=== PATIENT | female | born 1960 | race Two or more races ===

== ENCOUNTER 2024-03-11 13:59 | Outpatient (OUT) | payer SELFPAY | END 2024-03-11 14:00 | disposition home or self-care (01) | LOC: PST 13:59 | PROVIDERS: Visit Provider Surgery | DX: Z01.818 Encounter for other preprocedural examination (principal); R19.5 Other fecal abnormalities ==

== ENCOUNTER 2024-03-19 07:34 | Day surgery (SDC) | payer MEDICAID, SELFPAY ==
--- NOTE | 2024-03-19 | OP_ITS ---
OPERATION DATE: 03/19/2024 PREOPERATIVE DIAGNOSIS: Positive Cologuard. POSTOPERATIVE DIAGNOSIS: 2 cm rectal polyp. PROCEDURE: Colonoscopy to cecum with hot snare polypectomy x1 for rectal polyp. SURGEON: Chet Buchanan M.D. ANESTHESIA: Monitored anesthesia care. ESTIMATED BLOOD LOSS: Less than 1 mL. INDICATIONS AND CONSENT: Patient is a 63-year-old female presents for positive Cologuard. Indications, risks, benefits, alternatives of proceeding with colonoscopy were explained extensively to the patient, including the risks of bleeding, colon perforation or anesthetic complications. All of her questions were answered. Informed consent was obtained. PROCEDURE: Patient brought to the operating room, placed in the left lateral decubitus position. Monitored anesthesia care was provided. Rectal exam was performed which revealed no masses or blood. The scope was inserted into the anal canal. Under direct visualization was advanced. With the aid of abdominal compression, it was advanced to the cecum where cecal markings were clearly identified. There was noted to be a good prep. Upon withdrawal of the scope, mucosal surfaces were carefully examined. There were no mass lesions or inflammatory changes. No significant diverticulosis. Within the rectum, there was noted to be a 2 cm, irregular, villous type polyp that was removed with hot snare with good hemostasis. It was completely removed and sent off to Pathology. The scope was retroflexed in the anal canal. There was no significant hemorrhoidal disease. The scope was then withdrawn. Patient tolerated procedure well, was sent to recovery room in good condition. Follow up colonoscopy will likely be in three years, but will depend on the pathology. CC: Patient?s family physician AARON
--- OUTSIDE RECORDS SUMMARY | 2024-03-19 07:41 | XMS_ITS | CCD ---
Author Organization [facility] CliniSyky Care Team Providers Care Family Resource Management Professor Name Role Phone [facility], [facility] Primary Care Unava RADHA Barrientos Consulting Unavailable CHUCK EDEN Attending Unavailable CHUCK EEDN Admitting Unavailable CHUCK EDEN Consulting Unavailable Herbert Tatum Consulting Unavailable Vitaly Edwards Primary Care Provider VITALY LOTT Primary Care Physician Chet ESPINO Attending Unavailable VITALY LOTT Referring Unavailable Chet ESPINO Attending Unavailable VITALY LOTT Referring Unavailable Allergies Allergy Classification Reported Allergen(s) Allergy Type Date of Onset Reaction(s) Facility (1 source) No Known Medication Allergies; Translations: [No Known Medication Allergies] Propensity to adverse reactions (disorder) [facility] Repository Medications Current Medications Medication Drug Class(es) Dates Sig (Normalized) Sig (Original) lisinopril 40 mg oral tablet (3 sources) Angiotensin Converting Enzyme Inhibitor Start: 11-28-2023 take 1 tablet by mouth once daily lisinopril 40 mg Tab 40 mg = 1 tab(s), Oral, Daily, Refills(s) 0 Start Date: 11/28/23 Status: Ordered Start: 10-12-2022 take 1 tablet by masha th in the morning lisinopriL (PRINIVIL,ZESTRIL) 40 mg tablet Take 1 tablet (40 mg total) by mouth in the morning. 0 10/12/2022 Active melatonin 10 mg sublingual tablet (1 source) take 1 tablet under the tongue once daily at bedtime melatonin 10 mg tablet, sublingual Place under the tongue daily. Takes (2) 10 mg at bedtime 0 Active metFORMIN hydrochloride 500 mg oral tablet (2 sources) Biguanide Start: take 2 tablets by mouth once daily metformin 500 mg ER Tab 1,000 mg = 2 tab(s), Oral, Daily, Refills(s) 0 Start Date: 11/28/23 Status: Ordered Miralax (2 sources) Osmotic Laxative Start: 4 take 17 g by mouth once daily MiraLax 17 gm, Oral, Daily, Refill(s) 0 Start Date: 11/28/23 Status: Ordered sertraline 50 mg oral tablet (3 sources) Serotonin Reuptake Inhibitor Start: 4 take 1 tablet by mouth once daily Zoloft 50 mg Tab 50 mg = 1 tab(s), Oral, Daily, Refills(s) 0 Start Date: 11/28/23 Status: Ordered Start: 11-02-2022 End: 09-25-2023 take 1 tablet by mouth in the morning sertraline (ZOLOFT) 50 mg tablet Take 1 tablet (50 mg total) by mouth in the morning. 0 11/02/2022 09/25/2023 Discontinued Problems Active Problems Problem Classification Problem Date Documented Da te Episodic/Chronic Anxiety disorders (2 sources) Anxiety 11-28-2023 Chronic Diabetes mellitus without complication (2 sources) Type 2 diabetes mellitus 11-28-2023 Chronic Essential hypertension (3 sources) Essential (primary) hypertension; Translations: [Essential hypertension] Onset: 09-13-2020 11-28-2023 Chronic Mood disorders (2 sources) Depressive disorder 11-28-2023 Chronic Osteoarthritis (1 source) Unspecified osteoarthritis, unspecified site; Translations: [UNSPECIFIED OSTEOARTHRITIS UNS SITE] Onset: 09-13-2020 Chronic Other aftercare (1 source) Other penitentiary (current) drug therapy; Translations: [OTH PENITENTIARY CURRENT DRUG THERAPY] Onset: 09-13-2020 Episodic Other gastrointestinal disorders (2 sources) Constipation 11-28-2023 Episodic Other gastrointestinal disorders (1 source) Abnormal feces; Translations: [Other fecal abnormalities] Onset: 01-22-2024 Episodic Other lower respiratory disease (1 source) Hypoxemia; Translations: [HYPOXEMIA] Onset: 09-13-2020 Episodic Other nutritional; endocrine; and metabolic disorders (1 source) Obese class II; Translations: [Obesity, unspecified] 09-25-2023 Chronic Other nutritional; endocrine; and metabolic disorders (2 sources) Metabolic syndrome X 11-28-2023 Chronic Other nutritional; endocrine; and metabolic disorders (2 sources) Morbid obesity 11-28-2023 Chronic Other nutritional; endocrine; and metabolic disorders (1 source) Body mass index 30+ - obesity 01-22-2024 Chronic Other screening for suspected conditions (not mental disorders or infectious disease) (2 sources) Stool DNA-based colorectal cancer screening positive 11-28-2023 Episodic Pneumonia (except that caused by tuberculosis or sexually transmitted disease) (1 source) Other viral pneumonia; Translations: [OTHER VIRAL PNEUMONIA] Onset: 09-13-2020 Episodic Residual codes; unclassified (3 sources) Obstructive sleep apnea syndrome; Translations: [Obstructive sleep apnea (adult) (pediatric)] 09-25-2023 Chronic Residual codes; unclassified (3 sources) Insomnia; Translations: [Insomnia, unspecified] 09-25-2023 Episodic Residual codes; unclassified (1 source) Language spoken - finding; Translations: [Other specified health status] 09-25-2023 Episodic Respiratory failure; insufficiency; arrest (adult) (1 source) Acute respiratory failure with hypoxia; Translations: [ACUTE RESPIRATORY FAIL W/HYPOXIA] Onset: 09-13-2020 Episodic Unclassified (3 sources) COVID-19; Translations: [COVID-19] Onset: 08-29-2020 Past or Other Problems Problem Classification Problem Date Documented Da te Episodic/Chronic Heart valve disorders (2 sources) Murmur Resolved: 11-28-2023 11-28-2023 Episodic Results Test Name Value Interpretation Reference Range Facility Insurance Correspondenceon 0 03-05-2024 Insurance Correspondence [id number] 1#1.00TIFF [facility] Consent for Procedure/Surger yon 01-24-2024 Consent for Procedure/Surgery [id number] #1.00TIFF [facility] Facesheeton 01-23-2024 Facesheet [id number] 2#1.00TIFF [facility] Ambulatory Visit Summaryon 0 01-22-2024 Ambulatory Visit Summary YENNY POWERS :1960 Visit Date:01/22/2024 Ambulatory Visit Instructions Your Diagnosis Positive colorectal cancer screening using Cologuard test Your Care Team Attending Physician - Chet ESPINO MD Primary Care Physician - VITALY LOTT CNP Referring Physician - VITALY LOTT CNP This Is Your Medications List Contact prescribing physician if questions or concerns lisinopril (lisinopril 40 mg Tab) metformin (metformin 500 mg ER Tab) polyethylene glycol 3350 (MiraLax) sertraline (Zoloft 50 mg Tab) Procedures Performed Abdominal hysterectomy, Arthroscopy of knee. Discharge Vitals Heart Rate (Peripheral) 76 Respiratory Rate 16 Blood Pressure 126/80 Height 152.4 cm Height 60 in Weight 89.0 kg Weight 195.8 lb BMI 38.32 Medications What How Much When Instructions Unchanged lisinopril (lisinopril 40 mg Tab) 1 Tablets By Mouth Every day Contact prescribing physician if questions or concerns Unchanged metformin (metformin 500 mg ER Tab) 2 Tablets By Mouth Every day Contact prescribing physician if questions or concerns Unchanged polyethylene glycol 3350 (MiraLax) 17 Gram By Mouth Every day Contact prescribing physician if questions or concerns Unchanged sertraline (Zoloft 50 mg Tab) 1 Tablets By Mouth Every day Contact prescribing physician if questions or concerns Allergies No Known Allergies No Known Medication Allergies Problems Ongoing - Any problem that you are currently receiving treatment for. Anxiety BMI 38.0-38.9,adult Constipation Depression Essential hypertension Insomnia Metabolic syndrome X Morbid obesity Obstructive sleep apnea syndrome Positive colorectal cancer screening using Cologuard test Type 2 diabetes mellitus Historical - Any problem that you are no longer receiving treatment for. Murmur Patient Survey You may receive a survey via text or e-mail asking about your office visit. Please share your experience with us by completing your survey. We appreciate your feedback and thank you for choosing us for your care. Normal [facility] Lab Reportson 11-21-2023 Lab Reports [id number] #1.00TIFF Normal [facility] Physician Referralon 024 Physician Referral [id number] #1.00TIFF [facility] CBC W MANUAL DIFFon 09-02-20 20 ATYPICAL LYMPH # Normal [facility] Comment on above: Performed By: #### B #### [facility] [address] [place] [address] Panchito Haydee ATYPICAL LYMPH % Normal [facility] Comment on above: Performed By: #### B MP #### [facility] [address] [place] [address] Panchito Haydee BAND # 0.1 103/ul Normal 0.0-0.3 [facility] Comment on above: Performed By: #### B MP #### [facility] [address] [place] [address] Panchito Haydee BAND % 1 % Normal 0-5 [facility] Comment on above: Performed By: #### B MP #### [facility] [address] [place] [address] Panchito Haydee BASOM # 0.00 103/ul Normal 0.00-0.10 [facility] Comment on above: Performed By: #### B MP #### [facility] [address] [place] [address] Panchito Haydee BASOM % 0.0 % Critically low 0.2-2.0 [facility] Comment on above: Performed By: #### B MP #### [facility] [address] [place] [address] Panchito Haydee BLAST # Normal [facility] Comment on above: Performed By: #### B MP #### [facility] [address] [place] [address] Panchito Haydee BLAST % Normal The [facility] Comment on above: Performed By: #### B MP #### [facility] [address] [place] [address] Panchito Haydee CORRECTED WBC Normal 4.0-11.0 [facility] Comment on above: Performed By: #### B MP #### [facility] [address] [place] [address] Panchito Haydee Eosinophils (Bld) [#/Vol] 0.00 103/ul Normal 0.00-0.70 [facility] Comment on above: Performed By: #### B MP #### [facility] [address] [place] [address] Panchito Haydee Eosinophils/100 WBC (Bld) 0.0 % Critically low 0.9-7.0 [facility] Comment on above: Performed By: #### B MP #### [facility] [address] [place] [address] Panchito Hubbard Erythrocyte distribution width (RBC) [Ratio] 11.6 % Normal 11.0-15.0 [facility] Comment on above: Performed By: #### B MP #### [facility] [address] [place] [address] Panchito Hubbard Hematocrit (Bld) [Volume fraction] 36.4 % Normal 36.0-48.0 The [facility] Comment on above: Performed By: #### B MP #### [facility] [address] [place] [address] Panchito Haydee Hemoglobin (Bld) [Mass/Vol] 12.4 g/dl Normal 12.0-16.0 [facility] Comment on above: Performed By: #### B MP #### [facility] [address] [place] [address] Panchito Hubbard LYMPHM # 1.28 103/ul Normal 1.20-3.80 [facility] Comment on above: Performed By: #### B MP #### [facility] [address] [place] [address] Panchito Hubbard LYMPHM% 20.0 % Critically low 20.5-60.0 The [facility] Comment on above: Performed By: #### B MP #### [facility] [address] [place] [address] Panchito Hubbard MCH (RBC) [Entitic mass] 31.0 pg Normal 26.7-34.0 The [facility] Comment on above: Performed By: #### B MP #### [facility] [address] [place], [place] [id number] Panchito Hubbard MCHC (RBC) [Mass/Vol] 34.1 g/dl Normal 29.9-35.2 The [facility] Comment on above: Performed By: #### B MP #### [facility] [address] [place] [address] Panchito Haydee MCV (RBC) [Entitic vol] 91.0 fL Normal 81.0-99.0 The [facility] Comment on above: Performed By: #### B MP #### [facility] [address] [place] [address] Panchitoelizabeth Hubbard METAMYELOCYTE # 0.3 103/ul Normal [facility] Comment on above: Performed By: #### B MP #### [facility] [address] [place] [address] Panchitoelizabeth Hubbard METAMYELOCYTE % 4 % Normal [facility] Comment on above: Performed By: #### B MP #### [facility] [address] [place] [address] Panchitoelizabeth Hubbard MONOM# 0.83 103/ul Critically high 0.30-0.80 [facility] Comment on above: Performed By: #### B MP #### [facility] [address] [place] [address] Panchitoelizabeth Hubbard MONOM% 13.0 % Critically high 1.7-12.0 The [facility] Comment on above: Performed By: #### B MP #### [facility] [address] [place] [address] Panchitoelizabeth Hubbard MYELOCYTE # 0.4 103/ul Normal The [facility] Comment on above: Performed By: #### B MP #### [facility] [address] [place] [address] Panchitoelizabeth Hubbard MYELOCYTE % 7 % Normal The [facility] Comment on above: Performed By: #### B MP #### [facility] [address] [place] [address] Panchito Haydee NRBC Normal [facility] Comment on above: Performed By: #### B MP #### [facility] [address] [place] [address] Panchito Hubbard Platelet mean volume (Bld) [Entitic vol] 9.3 fL Critically low 9.5-13.5 [facility] Comment on above: Performed By: #### B MP #### [facility] [address] [place] [address] Panchito Haydee Platelets (Bld) [#/Vol] 365 103/ul Normal 150-450 [facility] Comment on above: Performed By: #### B MP #### [facility] [address] [id number] Panchito Haydee RBC (Bld) [#/Vol] 4.00 106/ul Critically low 4.20-5.40 [facility] Comment on above: Performed By: #### B MP #### [facility] [address] [address] Panchito Haydee SEG # 3.52 103/ul Normal 1.40-6.50 [facility] Comment on above: Performed By: #### B MP #### [facility] [address] [place], [place] [id number] Panchito Haydee Segmented neutrophils/100 WBC (Bld) 55.0 % Normal 43.0-75.0 [facility] Comment on above: Performed By: #### B MP #### [facility] [address] [place], [place] [id number] Panchito Haydee WBC (Bld) [#/Vol] 6.4 103/ul Normal 4.0-11.0 [facility] Comment on above: Performed By: #### B MP #### [facility] [address] [place], [place] [id number] Panchito Haydee PROF CHEM 8 (BAS METB)on Anion gap [Moles/Vol] 13.6 mmol/L Normal [facility] Comment on above: Performed By: #### B MP #### [facility] [address] [place], [place] [id number] Panchito Haydee Calcium [Mass/Vol] 8.6 mg/dL Normal 8.4-10.2 [facility] Comment on above: Performed By: #### B MP #### [facility] [address] [place], [place] [id number] Panchito Haydee Chloride [Moles/Vol] 104 mmol/L Normal 98-107 [facility] Comment on above: Performed By: #### B MP #### [facility] [address] [id number] Panchito Haydee CO2 [Moles/Vol] 24.4 mmol/L Normal 22.0-30.[address] [facility] Comment on above: Performed By: #### B MP #### [facility] [address] [place], [place] [id number] Panchito Haydee Creatinine [Mass/Vol] 0.77 mg/dL Normal 0.52-1.04 [facility] Comment on above: Performed By: #### B MP #### [facility] [address] [id number] Panchito Haydee EGFR-AF PARAGUAYAN >60 Normal >=60 [facility] Comment on above: Performed By: #### B MP #### [facility] [address] [id number] Panchito Haydee EGFR-NON AF PARAGUAYAN >60 Normal >=60 [facility] Comment on above: Performed By: #### B MP #### [facility] [address] [place], [place] [id number] Panchito Haydee Glucose [Mass/Vol] 154 mg/dL Critically high 74-106 [facility] Comment on above: Performed By: #### B MP #### [facility] [address] [place], [place] [address] Panchito Haydee Potassium [Moles/Vol] 3.5 mmol/L Normal 3.4-5.0 [facility] Comment on above: Performed By: #### B MP #### [facility] [address] [place], [place] [id number] Panchito Haydee Sodium [Moles/Vol] 139 mmol/L Normal 137-145 [facility] Comment on above: Performed By: #### B MP #### [facility] [address] [place], [place] [address] Panchito Haydee Urea nitrogen [Mass/Vol] 22.0 mg/dL Critically high 7.0-17.0 [facility] Comment on above: Performed By: #### B MP #### [facility] [address] [phone] Panchito Haydee Urea nitrogen/Creatinine [Mass ratio] 28.6 mg/mg Normal [facility] Comment on above: Performed By: #### B MP #### [facility] [address] [phone] Panchito Haydee CBC W MANUAL DIFFon 09-01-20 20 ATYPICAL LYMPH # 0.38 103/ul Normal [facility] Comment on above: Performed By: #### B MP #### [facility] [address] [place] [address] Panchito Haydee ATYPICAL LYMPH % 6 % Normal [facility] Comment on above: Performed By: #### B MP #### [facility] [address] [place] [address] Panchito Haydee BAND # 0.0 103/ul Normal 0.0-0.3 The [facility] Comment on above: Performed By: #### B MP #### [facility] [address] [place] [address] Panchito Haydee BAND % 0 % Normal 0-5 The [facility] Comment on above: Performed By: #### B MP #### [facility] [address] [place] [address] Panchito Haydee BASOM # 0.00 103/ul Normal 0.00-0.10 [facility] Comment on above: Performed By: #### B MP #### [facility] [address] [place] [address] Panchito Haydee BASOM % 0.0 % Critically low 0.2-2.0 The [facility] Comment on above: Performed By: #### B MP #### [facility] [address] [place] [address] Panchito Haydee BLAST # Normal [facility] Comment on above: Performed By: #### B MP #### [facility] [address] [place] [address] Panchito Haydee BLAST % Normal [facility] Comment on above: Performed By: #### B MP #### [facility] [address] [place] [address] Panchito Haydee CORRECTED WBC Normal 4.0-11.0 [facility] Comment on above: Performed By: #### B MP #### [facility] [address] [phone] Panchito Haydee Eosinophils (Bld) [#/Vol] 0.00 103/ul Normal 0.00-0.70 [facility] Comment on above: Performed By: #### B MP #### [facility] [address] [place], [place] [id number] Panchito Haydee Eosinophils/100 WBC (Bld) 0.0 % Critically low 0.9-7.0 The [facility] Comment on above: Performed By: #### B MP #### [facility] [address] [place], [place] [id number] Panchito Haydee Erythrocyte distribution width (RBC) [Ratio] 11.9 % Normal 11.0-15.0 [facility] Comment on above: Performed By: #### B MP #### [facility] [address] [place] [address] Panchito Haydee Hematocrit (Bld) [Volume fraction] 37.1 % Normal 36.0-48.0 [facility] Comment on above: Performed By: #### B MP #### [facility] [address] [place], [place] [id number] Panchito Haydee Hemoglobin (Bld) [Mass/Vol] 12.3 g/dl Normal 12.0-16.0 [facility] Comment on above: Performed By: #### B MP #### [facility] [address] [place], [place] [id number] Panchito Haydee LYMPHM # 1.95 103/ul Normal 1.20-3.80 [facility] Comment on above: Performed By: #### B MP #### [facility] [address] [place], [place] [id number] Panchito Haydee LYMPHM% 31.0 % Normal 20.5-60.0 The [facility] Comment on above: Performed By: #### B MP #### [facility] [address] [place], [place] [id number] Panchito Haydee MCH (RBC) [Entitic mass] 30.8 pg Normal 26.7-34.0 The [facility] Comment on above: Performed By: #### B MP #### [facility] [address] [place] [address] Panchitoelizabeth Arroyoen MCHC (RBC) [Mass/Vol] 33.2 g/dl Normal 29.9-35.2 The [facility] Comment on above: Performed By: #### B MP #### [facility] Laboratory [address] [place] [address] Panchito Haydee MCV (RBC) [Entitic vol] 93.0 fL Normal 81.0-99.0 [facility] Comment on above: Performed By: #### B MP #### [facility] Laboratory [address] [place] [address] Panchito Haydee METAMYELOCYTE # Normal The [facility] Comment on above: Performed By: #### B MP #### [facility] Laboratory [address] [place] [address] Panchito Haydee METAMYELOCYTE % Normal The [facility] Comment on above: Performed By: #### B MP #### [facility] Laboratory [address] [place] [address] Panchito Haydee MONOM# 0.82 103/ul Critically high 0.30-0.80 The [facility] Comment on above: Performed By: #### B MP #### [facility] Laboratory [address] [place] [address] Panchito Haydee MONOM% 13.0 % Critically high 1.7-12.0 The [facility] Comment on above: Performed By: #### B MP #### [facility] Laboratory [address] [place] [address] Panchito Haydee MYELOCYTE # Normal The [facility] Comment on above: Performed By: #### B MP #### [facility] Laboratory [address] [place] [address] Panchito Haydee MYELOCYTE % Normal The [facility] Comment on above: Performed By: #### B MP #### [facility] Laboratory [address] [place] [address] Panchito Haydee NRBC Normal The [facility] Comment on above: Performed By: #### B MP #### [facility] Laboratory [address] [place] [address] Panchito Haydee Platelet mean volume (Bld) [Entitic vol] 9.7 fL Normal 9.5-13.5 [facility] Comment on above: Performed By: #### B MP #### [facility] Laboratory [address] [id number] Panchito Hubbard Platelets (Bld) [#/Vol] 361 103/ul Normal 150-450 The [facility] Comment on above: Performed By: #### B MP #### [facility] Laboratory [address] [id number] Panchitoelizabeth Arroyoen RBC (Bld) [#/Vol] 3.99 106/ul Critically low 4.20-5.40 [facility] Comment on above: Performed By: #### B MP #### [facility] Laboratory [address] [place] [address] Panchito Hubbard SEG # 3.15 103/ul Normal 1.40-6.50 [facility] Comment on above: Performed By: #### B MP #### [facility] Laboratory [address] [place] [address] Panchito Haydee Segmented neutrophils/100 WBC (Bld) 50.0 % Normal 43.0-75.0 [facility] Comment on above: Performed By: #### B MP #### [facility] Laboratory [address] [place], [place] [id number] Panchitoelizabeth Hubbard WBC (Bld) [#/Vol] 6.3 103/ul Normal 4.0-11.0 [facility] Comment on above: Performed By: #### B MP #### [facility] Laboratory [address] [place], [place] [id number] Panchito Hubbard PROF CHEM 8 (BAS METB)on Anion gap [Moles/Vol] 11.3 mmol/L Normal [facility] Comment on above: Performed By: #### B MP #### [facility] Laboratory [address] [place], [place] [id number] Panchito Haydee Calcium [Mass/Vol] 8.9 mg/dL Normal 8.4-10.2 [facility] Comment on above: Performed By: #### B MP #### [facility] Laboratory [address] [id number] Panchito Haydee Chloride [Moles/Vol] 106 mmol/L Normal 98-107 The [facility] Comment on above: Performed By: #### B MP #### [facility] Laboratory [address] [place] [address] Panchito Haydee CO2 [Moles/Vol] 28.3 mmol/L Normal 22.0-30.0 The [facility] Comment on above: Performed By: #### B MP #### [facility] Laboratory [address] [place] [address] Panchito Haydee Creatinine [Mass/Vol] 0.86 mg/dL Normal 0.52-1.04 The [facility] Comment on above: Performed By: #### B MP #### [facility] Laboratory [address] [place] [address] Panchito Haydee EGFR-AF PARAGUAYAN >60 Normal >=60 The [facility] Comment on above: Performed By: #### B MP #### [facility] Laboratory [address] [place] [address] Panchito Haydee EGFR-NON AF PARAGUAYAN >60 Normal >=60 The [facility] Comment on above: Performed By: #### B MP #### [facility] Laboratory [address] [place] [address] Panchito Haydee Glucose [Mass/Vol] 106 mg/dL Normal 74-106 The [facility] Comment on above: Performed By: #### B MP #### [facility] Laboratory [address] [place] [address] Panchito Haydee Potassium [Moles/Vol] 3.6 mmol/L Normal 3.4-5.0 The [facility] Comment on above: Performed By: #### B MP #### [facility] Laboratory [address] [place], [place] [id number] Panchito Hayede Sodium [Moles/Vol] 142 mmol/L Normal 137-145 The [facility] Comment on above: Performed By: #### B MP #### [facility] Laboratory [address] [address] Panchito Haydee Urea nitrogen [Mass/Vol] 23.0 mg/dL Critically high 7.0-17.0 [facility] Comment on above: Performed By: #### B MP #### [facility] Laboratory [address] [place], [place] [id number] Panchito Haydee Urea nitrogen/Creatinine [Mass ratio] 26.7 mg/mg Normal The [facility] Comment on above: Performed By: #### B MP #### [facility] Laboratory [address] [place], [place] [id number] Panchito Haydee CBC W MANUAL DIFFon 08-31-20 20 ATYPICAL LYMPH # 0.16 103/ul Normal [facility] Comment on above: Performed By: #### C HOMERO #### [facility] Laboratory [address] [place], [place] [id number] Panchito Haydee ATYPICAL LYMPH % 2 % Normal The [facility] Comment on above: Performed By: #### C HOMERO #### [facility] Laboratory [address] [place] [address] Panchito Haydee BAND # 0.2 103/ul Normal 0.0-0.3 The [facility] Comment on above: Performed By: #### C HOMERO #### [facility] Laboratory [address] [place], [place] [id number] Panchito Haydee BAND % 3 % Normal 0-5 The [facility] Comment on above: Performed By: #### C HOMERO #### [facility] Laboratory [address] [place] [address] Panchito Haydee BASOM # 0.00 103/ul Normal 0.00-0.10 The [facility] Comment on above: Performed By: #### C HOMERO #### [facility] Laboratory [address] [place] [address] Panchito Haydee BASOM % 0.0 % Critically low 0.2-2.0 The [facility] Comment on above: Performed By: #### C HOMERO #### [facility] Laboratory [address] [place] [address] Panchito Haydee BLAST # Normal The [facility] Comment on above: Performed By: #### C HOMERO #### [facility] Laboratory [address] [place] [address] Panchito Haydee BLAST % Normal The [facility] Comment on above: Performed By: #### C HOMERO #### [facility] Laboratory [address] [place], [place] [address] Panchito Haydee CORRECTED WBC Normal 4.0-11.0 [facility] Comment on above: Performed By: #### C HOMERO #### [facility] Laboratory [address] [place], [place] [address] Panchito Haydee Eosinophils (Bld) [#/Vol] 0.00 103/ul Normal 0.00-0.70 [facility] Comment on above: Performed By: #### C HOMERO #### [facility] Laboratory [address] [place], [place] [address] Panchito Haydee Eosinophils/100 WBC (Bld) 0.0 % Critically low 0.9-7.0 [facility] Comment on above: Performed By: #### C HOMERO #### [facility] Laboratory [address] [place], [place] [id number] Panchito Haydee Erythrocyte distribution width (RBC) [Ratio] 11.9 % Normal 11.0-15.0 [facility] Comment on above: Performed By: #### C HOMERO #### [facility] Laboratory [address] [place], [place] [id number] Panchito Haydee Hematocrit (Bld) [Volume fraction] 40.7 % Normal 36.0-48.0 [facility] Comment on above: Performed By: #### C HOMERO #### [facility] Laboratory [address] [place] [address] Panchito Haydee Hemoglobin (Bld) [Mass/Vol] 13.6 g/dl Normal 12.0-16.0 [facility] Comment on above: Performed By: #### C HOMERO #### [facility] Laboratory [address] [place] [address] Panchito Haydee LYMPHM # 2.13 103/ul Normal 1.20-3.80 The [facility] Comment on above: Performed By: #### C HOMERO #### [facility] Laboratory [address] [phone] Panchito Haydee LYMPHM% 27.0 % Normal 20.5-60.0 [facility] Comment on above: Performed By: #### C HOMERO #### [facility] Laboratory [address] [address] Panchitoelizabeth Hubbard MCH (RBC) [Entitic mass] 30.7 pg Normal 26.7-34.0 [facility] Comment on above: Performed By: #### C HOMERO #### [facility] Laboratory [address] [place] [address] Panchitoelizabeth Arroyoen MCHC (RBC) [Mass/Vol] 33.4 g/dl Normal 29.9-35.2 The [facility] Comment on above: Performed By: #### C HOMERO #### [facility] Laboratory [address] [place] [address] Panchitoelizabeth Arroyoen MCV (RBC) [Entitic vol] 91.9 fL Normal 81.0-99.0 The [facility] Comment on above: Performed By: #### Forrest VALENTIN #### [facility] Laboratory [address] [place] [address] Panchito Haydee METAMYELOCYTE # Normal The [facility] Comment on above: Performed By: #### Forrest VALENTIN #### [facility] Laboratory [address] [place] [address] Panchito Haydee METAMYELOCYTE % Normal The [facility] Comment on above: Performed By: #### C HOMERO #### [facility] Laboratory [address] [place] [address] Panchito Haydee MONOM# 0.63 103/ul Normal 0.30-0.80 The [facility] Comment on above: Performed By: #### Forrest VALENTIN #### [facility] Laboratory [address] [place] [address] Panchito Haydee MONOM% 8.0 % Normal 1.7-12.0 The [facility] Comment on above: Performed By: #### C HOMERO #### [facility] Laboratory [address] [place] [address] Panchito Haydee MYELOCYTE # Normal The [facility] Comment on above: Performed By: #### Forrest VALENTIN #### [facility] Laboratory [address] [place], [place] [id number] Panchito Haydee MYELOCYTE % Normal The [facility] Comment on above: Performed By: #### Forrest VALENTIN #### [facility] Laboratory [address] [place], [place] [address] Panchitoelizabeth Hubbard NRBC Normal [facility] Comment on above: Performed By: #### Forrest VALENTIN #### [facility] Laboratory [address] [place], [place] [address] Panchito Haydee Platelet mean volume (Bld) [Entitic vol] 9.5 fL Normal 9.5-13.5 [facility] Comment on above: Performed By: #### Forrest VALENTIN #### [facility] Laboratory [address] [place], [place] [address] Panchito Haydee Platelets (Bld) [#/Vol] 379 103/ul Normal 150-450 [facility] Comment on above: Performed By: #### Forrest VALENTIN #### [facility] Laboratory [address] [place], [place] [id number] Panchito Haydee RBC (Bld) [#/Vol] 4.43 106/ul Normal 4.20-5.40 [facility] Comment on above: Performed By: #### Forrest VALENTIN #### [facility] Laboratory [address] [place], [place] [address] Panchitoelizabeth Hubbard SEG # 4.74 103/ul Normal 1.40-6.50 [facility] Comment on above: Performed By: #### Forrest VALENTIN #### [facility] Laboratory [address] [place] [address] Panchito Hubbard Segmented neutrophils/100 WBC (Bld) 60.0 % Normal 43.0-75.0 [facility] Comment on above: Performed By: #### Forrest VALENTIN #### [facility] Laboratory [address] [place] [address] Panchito Haydee WBC (Bld) [#/Vol] 7.9 103/ul Normal 4.0-11.0 The [facility] Comment on above: Performed By: #### Forrest VALENTIN #### [facility] Laboratory [address] [place] [address] Panchito Hubbard PROF CHEM 8 (BAS METB)on Anion gap [Moles/Vol] 12.8 mmol/L Normal [facility] [place] [facility] Comment on above: Performed By: #### B MP #### [facility] Laboratory [address] [address] Panchito Haydee Calcium [Mass/Vol] 9.7 mg/dL Normal 8.4-10.2 [facility] Comment on above: Performed By: #### B MP #### [facility] Laboratory [address] [address] Panchito Haydee Chloride [Moles/Vol] 105 mmol/L Normal 98-107 [facility] Comment on above: Performed By: #### B MP #### [facility] Laboratory [address] [address] Panchito Haydee CO2 [Moles/Vol] 25.9 mmol/L Normal 22.0-30.[address] [facility] Comment on above: Performed By: #### B MP #### [facility] Laboratory [address] [address] Panchito Haydee Creatinine [Mass/Vol] 0.86 mg/dL Normal 0.52-1.04 [facility] Comment on above: Performed By: #### B MP #### [facility] Laboratory [address] [place] [address] Panchito Haydee EGFR-AF PARAGUAYAN >60 Normal >=[address] [facility] Comment on above: Performed By: #### B MP #### [facility] Laboratory [address] [address] Panchito Haydee EGFR-NON AF PARAGUAYAN >60 Normal >=60 [facility] Comment on above: Performed By: #### B MP #### [facility] Laboratory [address] [address] Panchito Haydee Glucose [Mass/Vol] 152 mg/dL Critically high 74-106 [facility] Comment on above: Performed By: #### B MP #### [facility] Laboratory [address] [place] [address] Panchito Haydee Potassium [Moles/Vol] 3.7 mmol/L Normal 3.4-5.0 [facility] Comment on above: Performed By: #### B MP #### [facility] Laboratory [address] [phone] Panchito Haydee Sodium [Moles/Vol] 140 mmol/L Normal 137-145 [facility] Comment on above: Performed By: #### B MP #### [facility] Laboratory [address] [place] [address] Panchito Haydee Urea nitrogen [Mass/Vol] 25.0 mg/dL Critically high 7.0-17.0 [facility] Comment on above: Performed By: #### B MP #### [facility] Laboratory [address] [place] [address] Panchito Haydee Urea nitrogen/Creatinine [Mass ratio] 29.1 mg/mg Normal The [facility] Comment on above: Performed By: #### B MP #### [facility] Laboratory [address] [place] [address] Panchito Haydee CBC W MANUAL DIFFon 08-30-20 20 ATYPICAL LYMPH # 0.05 103/ul Normal The [facility] Comment on above: Performed By: #### C HOMERO #### [facility] Laboratory [address] [place] [address] Panchito Haydee ATYPICAL LYMPH % 1 % Normal The [facility] Comment on above: Performed By: #### C HOMERO #### [facility] Laboratory [address] [place] [address] Panchito Haydee BAND # 0.2 103/ul Normal 0.0-0.3 The [facility] Comment on above: Performed By: #### C HOMERO #### [facility] Laboratory [address] [place] [address] Panchito Haydee BAND % 3 % Normal 0-5 The [facility] Comment on above: Performed By: #### C HOMERO #### [facility] Laboratory [address] [place] [address] Panchito Haydee BASOM # 0.00 103/ul Normal 0.00-0.10 The [facility] Comment on above: Performed By: #### C HOMERO #### [facility] Laboratory [address] [place] [address] Panchito Haydee BASOM % 0.0 % Critically low 0.2-2.0 The [facility] Comment on above: Performed By: #### C HOMERO #### [facility] Laboratory [address] [place], [place] [id number] Panchito Haydee BLAST # Normal [facility] Comment on above: Performed By: #### C HOMERO #### [facility] Laboratory [address] [place], [place] [id number] Panchito Haydee BLAST % Normal The [facility] Comment on above: Performed By: #### C HOMERO #### [facility] Laboratory [address] [place] [address] Panchito Haydee CORRECTED WBC Normal 4.0-11.0 [facility] Comment on above: Performed By: #### C HOMERO #### [facility] Laboratory [address] [place] [address] Panchito Haydee Eosinophils (Bld) [#/Vol] 0.00 103/ul Normal 0.00-0.70 The [facility] Comment on above: Performed By: #### Forrest VALENTIN #### [facility] Laboratory [address] [place] [address] Panchito Haydee Eosinophils/100 WBC (Bld) 0.0 % Critically low 0.9-7.0 [facility] Comment on above: Performed By: #### Forrest VALENTIN #### [facility] Laboratory [address] [place] [address] Panchito Haydee Erythrocyte distribution width (RBC) [Ratio] 12.1 % Normal 11.0-15.0 The [facility] Comment on above: Performed By: #### Forrest VALENTIN #### [facility] Laboratory [address] [place] [address] Panchito Haydee Hematocrit (Bld) [Volume fraction] 35.9 % Critically low 36.0-48.0 The [facility] Comment on above: Performed By: #### Forrest VALENTIN #### [facility] Laboratory [address] [place] [address] Panchito Haydee Hemoglobin (Bld) [Mass/Vol] 12.0 g/dl Normal 12.0-16.0 The [facility] Comment on above: Performed By: #### Forrest VALENTIN #### [facility] Laboratory [address] [address] Panchito Haydee LYMPHM # 0.46 103/ul Critically low 1.20-3.80 [facility] Comment on above: Performed By: #### C HOMERO #### [facility] Laboratory [address] [place], [place] [id number] Panchito Haydee LYMPHM% 9.0 % Critically low 20.5-60.0 The [facility] Comment on above: Performed By: #### C HOMERO #### [facility] Laboratory [address] [place], [place] [id number] Panchitoelizabeth Arroyoen MCH (RBC) [Entitic mass] 30.9 pg Normal 26.7-34.0 The [facility] Comment on above: Performed By: #### C HOMERO #### [facility] Laboratory [address] [place] [address] Panchitoelizabeth Hubbard MCHC (RBC) [Mass/Vol] 33.4 g/dl Normal 29.9-35.2 The [facility] Comment on above: Performed By: #### C HOMERO #### [facility] Laboratory [address] [place], [place] [id number] Panchitoelizabeth Arroyoen MCV (RBC) [Entitic vol] 92.5 fL Normal 81.0-99.0 The [facility] Comment on above: Performed By: #### Forrest VALENTIN #### [facility] Laboratory [address] [address] [place], [place] [id number] Panchito Haydee METAMYELOCYTE # Normal [facility] Comment on above: Performed By: #### Forrest VALENTIN #### [facility] [address] [place], [place] [id number] Panchito Haydee METAMYELOCYTE % Normal [facility] Comment on above: Performed By: #### C HOMERO #### [facility] [address] [place], [place] [id number] Panchito Haydee MONOM# 0.41 103/ul Normal 0.30-0.80 [facility] Comment on above: Performed By: #### Forrest VALENTIN #### [facility] [address] [place], [place] [id number] Panchito Haydee MONOM% 8.0 % Normal 1.7-12.0 [facility] Comment on above: Performed By: #### Forrest VALENTIN #### [facility] [address] [place] [address] Panchitoelizabeth Arroyoen MYELOCYTE # Normal [facility] Comment on above: Performed By: #### Forrest VALENTIN #### [facility] [address] [place], [place] [id number] Panchito Haydee MYELOCYTE % Normal [facility] Comment on above: Performed By: #### Forrest VALENTIN #### [facility] [address] [place], [place] [id number] Panchito Haydee NRBC Normal [facility] Comment on above: Performed By: #### Forrest VALENTIN #### [facility] [address] [place], [place] [id number] Panchito Haydee Platelet mean volume (Bld) [Entitic vol] 10.0 fL Normal 9.5-13.5 [facility] Comment on above: Performed By: #### Forrest VALENTIN #### [facility] [address] [place] [address] Panchito Haydee Platelets (Bld) [#/Vol] 247 103/ul Normal 150-450 [facility] Comment on above: Performed By: #### Forrest VALENTIN #### [facility] [address] [place] [address] Panchitoelizabeth Arroyoen RBC (Bld) [#/Vol] 3.88 106/ul Critically low 4.20-5.40 [facility] Comment on above: Performed By: #### Forrest VALENTIN #### [facility] [address] [place] [address] Panchito Haydee SEG # 4.03 103/ul Normal 1.40-6.50 [facility] Comment on above: Performed By: #### Forrest VALENTIN #### [facility] [address] [place], [place] [id number] Panchito Haydee Segmented neutrophils/100 WBC (Bld) 79.0 % Critically high 43.0-75.0 [facility] Comment on above: Performed By: #### Forrest VALENTIN #### [facility] [address] [place] [address] Panchito Haydee WBC (Bld) [#/Vol] 5.1 103/ul Normal 4.0-11.0 [facility] Comment on above: Performed By: #### C BCMAN #### [facility] [address] [place] [address] Panchito Haydee PROF CHEM 8 (BAS METB)on Anion gap [Moles/Vol] 13.4 mmol/L Normal [facility] Comment on above: Performed By: #### B MP #### [facility] [address] [address] Panchito Haydee Calcium [Mass/Vol] 9.2 mg/dL Normal 8.4-10.2 [facility] Comment on above: Performed By: #### B MP #### [facility] [address] [place] [address] Panchito Haydee Chloride [Moles/Vol] 106 mmol/L Normal 98-107 [facility] Comment on above: Performed By: #### B MP #### [facility] [address] [place] [address] Panchito Haydee CO2 [Moles/Vol] 25.0 mmol/L Normal 22.0-30.[address] [facility] Comment on above: Performed By: #### B MP #### [facility] [address] [place] [address] Panchito Haydee Creatinine [Mass/Vol] 0.72 mg/dL Normal 0.52-1.04 [facility] Comment on above: Performed By: #### B MP #### [facility] [address] [place] [address] Panchito Haydee EGFR-AF PARAGUAYAN >60 Normal >=60 The [facility] Comment on above: Performed By: #### B MP #### [facility] [address] [place] [address] Panchito Haydee EGFR-NON AF PARAGUAYAN >60 Normal >=60 [facility] Comment on above: Performed By: #### B MP #### [facility] [address] [place] [address] Panchito Haydee Glucose [Mass/Vol] 119 mg/dL Critically high 74-106 [facility] Comment on above: Performed By: #### B MP #### [facility] [address] [place], [place] [id number] Panchito Haydee Potassium [Moles/Vol] 3.4 mmol/L Normal 3.4-5.0 [facility] Comment on above: Performed By: #### B MP #### [facility] [address] [place], [place] [id number] Panchito Haydee Sodium [Moles/Vol] 141 mmol/L Normal 137-145 [facility] Comment on above: Performed By: #### B MP #### [facility] [address] [place], [place] [id number] Panchito Haydee Urea nitrogen [Mass/Vol] 16.0 mg/dL Normal 7.0-17.0 [facility] Comment on above: Performed By: #### B MP #### [facility] [address] [place], [place] [address] Panchito Haydee Urea nitrogen/Creatinine [Mass ratio] 22.2 mg/mg Normal [facility] Comment on above: Performed By: #### B MP #### [facility] [address] [place], [place] [address] Panchito Haydee CBC AUTO DIFFon 08-29-2020 Basophils (Bld) [#/Vol] 0.1 103/ul Normal 0.0-0.1 [facility] Comment on above: Performed By: #### C BC #### [facility] [address] [place], [place] [id number] Panchito Haydee Basophils/100 WBC (Bld) 0.6 % Normal 0.2-2.0 [facility] Comment on above: Performed By: #### C BC #### [facility] [address] [place], [place] [id number] Panchito Haydee Eosinophils (Bld) [#/Vol] 0.0 103/ul Normal 0.0-0.7 [facility] Comment on above: Performed By: #### C BC #### [facility] [address] [place], [place] [id number] Panchito Haydee Eosinophils/100 WBC (Bld) 0.1 % Critically low 0.9-7.0 [facility] Comment on above: Performed By: #### C BC #### [facility] [address] [place] [address] Panchitoelizabeth Hubbard Erythrocyte distribution width (RBC) [Ratio] 12.0 % Normal 11.0-15.0 [facility] Comment on above: Performed By: #### C BC #### [facility] [address] [place] [address] Panchito Haydee Hematocrit (Bld) [Volume fraction] 36.9 % Normal 36.0-48.0 [facility] Comment on above: Performed By: #### C BC #### [facility] [address] [place] [address] Panchito Haydee Hemoglobin (Bld) [Mass/Vol] 12.7 g/dL Normal 12.0-16.0 [facility] Comment on above: Performed By: #### C BC #### [facility] [address] [place] [address] Panchito Haydee IG # 0.46 10e3/ul Critically high 0.00-0.03 [facility] Comment on above: Performed By: #### C BC #### [facility] [address] [place] [address] Panchito Haydee IG % 5.2 % Critically high 0.0-0.5 [facility] Comment on above: Performed By: #### C BC #### [facility] [address] [place] [address] Pacnhito Haydee Lymphocytes (Bld) [#/Vol] 0.5 103/ul Critically low 1.2-3.8 [facility] Comment on above: Performed By: #### C BC #### [facility] [address] [place] [address] Panchito Haydee Lymphocytes/100 WBC (Bld) 6.0 % Critically low 20.5-60.0 [facility] Comment on above: Performed By: #### C BC #### [facility] [address] [place] [address] Panchito Haydee MANUAL DIFF REQ NO Normal [facility] Comment on above: Performed By: #### C BC #### [facility] [address] [place] [id number] Panchito Hubbard MCH (RBC) [Entitic mass] 31.5 pg Normal 26.7-34.0 [facility] Comment on above: Performed By: #### C BC #### [facility] [address] [place], [place] [id number] Panchito Hubbard MCHC (RBC) [Mass/Vol] 34.4 g/dL Normal 29.9-35.2 [facility] Comment on above: Performed By: #### C BC #### [facility] [address] [place], [place] [id number] Panchito Hubbard MCV (RBC) [Entitic vol] 91.6 fL Normal 81.0-99.0 [facility] Comment on above: Performed By: #### C BC #### [facility] [address] [place], [place] [id number] Panchito Haydee Monocytes (Bld) [#/Vol] 0.5 103/ul Normal 0.3-0.8 [facility] Comment on above: Performed By: #### C BC #### [facility] [address] [place], [place] [address] Panchito Hubbard Monocytes/100 WBC (Bld) 5.4 % Normal 1.7-12.0 [facility] Comment on above: Performed By: #### C BC #### [facility] [address] [place], [place] [address] Panchito Haydee Neutrophils (Bld) [#/Vol] 7.3 103/ul Critically high 1.4-6.5 [facility] Comment on above: Performed By: #### C BC #### [facility] [address] [place], [place] [address] Panchito Haydee Neutrophils/100 WBC (Bld) 82.7 % Critically high 43.0-75.0 [facility] Comment on above: Performed By: #### C BC #### [facility] [address] [place], [place] [id number] Panchito Hubbard Platelet mean volume (Bld) [Entitic vol] 9.9 fL Normal 9.5-13.5 [facility] Comment on above: Performed By: #### C BC #### [facility] [address] [place] [address] Panchito Hubbard Platelets (Bld) [#/Vol] 251 103/ul Normal 150-450 [facility] Comment on above: Performed By: #### C BC #### [facility] [address] [place] [address] Panchito Hubbard RBC (Bld) [#/Vol] 4.03 106/ul Critically low 4.20-5.40 Th e [facility] Comment on above: Performed By: #### C BC #### [facility] [address] [place] [address] Panchito Hubbard WBC (Bld) [#/Vol] 8.8 103/ul Normal 4.0-11.0 [facility] Comment on above: Performed By: #### C BC #### [facility] [address] [place], [place] [address] Panchito Hubbard D-DIMERon 08-29-2020 D-DIMER COMMENTS SEE BELOW Normal The [facility] Comment on above: Result Comment: Incr eases in D-Dimer concentration observed with thromboembolic events can be variable due to localization, size, and age of the thrombus. Therefore, a thromboembolic event cannot be diagnosed with certainty on the basis of the reference range. D-Dimers may also be elevated for a variety of disorders including: advanced age, , coronary disease, cancer, liver disease, infection, inflammation, hematoma, DIC, trauma, post-surgery, diabetes, thrombolytic or anticoagulant therapy, stress, and generalizd hospitalization. Performed By: #### B MP #### [facility] [address] [place], [place] [id number] Panchito Hubbard Fibrin D-dimer FEU IA (Bld) [Mass/Vol] 0.95 ug/mL Critically high 0.19-0.50 [facility] Comment on above: Result Comment: test repeated critical value verified Performed By: #### B MP #### [facility] [address] [place] [address] Panchito Haydee LACTATE/LACTIC ACIDon 2019 Lactate [Moles/Vol] 1.7 mmol/L Normal 0.7-2.0 [facility] Comment on above: Performed By: #### L ACT #### [facility] [address] [id number] Panchito Haydee PROF CHEM 8 (BAS METB)on Anion gap [Moles/Vol] 12.0 mmol/L Normal [facility] Comment on above: Performed By: #### T ROP, BMP #### [facility] [address] [address] Panchito Haydee Calcium [Mass/Vol] 9.5 mg/dL Normal 8.4-10.2 [facility] Comment on above: Performed By: #### T ROP, BMP #### [facility] [address] [address] Panchito Haydee Chloride [Moles/Vol] 103 mmol/L Normal 98-107 [facility] Comment on above: Performed By: #### T ROP, BMP #### [facility] [address] [address] Panchito Haydee CO2 [Moles/Vol] 25.5 mmol/L Normal 22.0-30.[address] [facility] Comment on above: Performed By: #### T ROP, BMP #### [facility] [address] [address] Panchito Haydee Creatinine [Mass/Vol] 0.94 mg/dL Normal 0.52-1.04 [facility] Comment on above: Performed By: #### T ROP, BMP #### [facility] [address] [address] Panchito Haydee EGFR-AF PARAGUAYAN >60 Normal >=60 [facility] Comment on above: Performed By: #### T ROP, BMP #### [facility] [address] [address] Panchito Haydee EGFR-NON AF PARAGUAYAN >60 Normal >=60 [facility] Comment on above: Performed By: #### T ROP, BMP #### [facility] [address] [id number] Panchito Haydee Glucose [Mass/Vol] 203 mg/dL Critically high 74-106 [facility] Comment on above: Performed By: #### T ROP, BMP #### [facility] [address] [id number] Panchito Haydee Potassium [Moles/Vol] 3.5 mmol/L Normal 3.4-5.0 [facility] Comment on above: Performed By: #### T LISA, BMP #### [facility] [address] [address] Panchito Haydee Sodium [Moles/Vol] 137 mmol/L Normal 137-145 [facility] Comment on above: Performed By: #### T LISA, BMP #### [facility] [address] [address] Panchito Haydee Urea nitrogen [Mass/Vol] 15.0 mg/dL Normal 7.0-17.0 [facility] Comment on above: Performed By: #### T LISA, BMP #### [facility] [address] [place], [place] [address] Panchito Haydee Urea nitrogen/Creatinine [Mass ratio] 16.0 mg/mg Normal [facility] Comment on above: Performed By: #### T LISA, BMP #### [facility] [address] [place], [place] [id number] Panchito Hubbard Rapid Covid-19 PCRon 08-29- 020 I.Predictus LDT Info SEE BELOW Normal [facility] Comment on above: Result Comment: This test is not yet approved or cleared by the [place] Food and Drug Administration (FDA) . This test was developed by [employer], [place]. The performance characteristics of this test were validated by The [facility]. The results are not intended to be used as the sole means for clinical diagnosis or patient management decisions. The [facility] is authorized under Clinical Laboratory Improvement Amendments (CLIA) to perform high-complexity testing. When diagnostic testing is negative, the possibility of a false negative should be considered in the context of a patients recent exposures and the presence of clinical signs and symptoms consistent with SARS-CoV-2. Performed By: #### B MP #### [facility] [address] [place] [address] Panchito Hubbard SARS-CoV-2 DETECTED NOT DETECTED The [facility] Comment on above: Result Comment: This test is not yet approved or cleared by the [place] Food and Drug Administration (FDA). This test was developed by [employer], [place]. The performance characteristics of this test were validated by The [facility]. The results are not intended to be used as the sole means for clinical diagnosis or patient management decisions. The [facility] is authorized under Clinical Laboratory Improvement Amendments (CLIA) to perform high-complexity testing. Performed By: #### B MP #### [facility] [address] [place] [address] Panchito Hubbard TROPONIN - Ion 08-29-2020 Troponin I.cardiac [Mass/Vol] SEE BELOW Normal [facility] Comment on above: Result Comment: <0.0 34 ng/ml NEGATIVE 0.034-0.119 INDETERMINATE 0.120 AMI CUT OFF Performed By: #### T LISA, NIYA #### [facility] [address] [place] [address] Panchito Hubbard Troponin I.cardiac [Mass/Vol] ng/mL Normal <=0.034 [facility] Comment on above: Performed By: #### Rosario GONZALEZ, BMP #### [facility] [address] [place] [address] Panchito Hubbard XR CHEST 1 Von 08-29-2020 XR CHEST 1 V EXAM: XR CHEST 1 V HISTORY: SHORTNESS OF BREATH COMPARISON: None. FINDINGS: Single view of the chest was obtained. The cardiac silhouette is partially obscured although appears mildly enlarged. Diffuse patchy bilateral interstitial and airspace opacities are present. No pneumothorax or pleural effusion. Visualized portions of the upper abdomen unremarkable. No acute osseous abnormalities. IMPRESSION: Patchy bilateral interstitial and airspace opacities concerning for multifocal atypical/viral pneumonia. Pulmonary edema is felt less likely. Suspected borderline cardiomegaly. Electronically authenticated by: HERBERT TATUM Date: 2020-08-29 20:09 Normal [facility] Vital Signs Date Time Vital Sign Value Performing Clinician Carlitos joseph 01-22-2024 15:40-0400 Blood Pressure Location Chet KENZIE [facility] 01-22-2024 15:40-0400 Diastolic blood pressure 80 mm[Hg] Chet ESPINO [facility] 01-22-2024 15:40-0400 Heart rate 76 /min Chet IRVINGL [facility] 01-22-2024 15:40-0400 Respiratory rate 16 /min Chet KENZIE [facility] 01-22-2024 15:40-0400 Systolic blood pressure 126 mm[Hg] Chet ESPINO [facility] 09-25-2023 11:32-0500 Body height 157.5 cm Kimberley Jose MD Work Phone: [facility] 09-25-2023 11:32-0500 Body mass index (BMI) [Ratio] 37.06 kg/m2 Kimberley Jose MD Work Phone: [facility] 09-25-2023 11:32-0500 Body weight 91.9 kg Kimberley Jose MD Work Phone: [facility] 09-25-2023 11:32-0500 Diastolic blood pressure 75 mm[Hg] Kimberley Jose MD Work Phone: [facility] 09-25-2023 11:32-0500 Heart rate 70 /min Kimberley Jose MD Work Phone: [facility] 09-25-2023 11:32-0500 SaO2% (BldA) [Mass fraction] 97 % Kimberley Jose MD Work Phone: [facility] 09-25-2023 11:32-0500 Systolic blood pressure 135 mm[Hg] Kimberley Jose MD Work Phone: [facility] Encounters Encounter Date Encounter Type Care Provider Facility Start: 01-22-2024 End: 01-22-2024 ambulatory Chet ESPINO Facility:[facility] Start: 01-22-2024 End: 01-22-2024 Patient encounter procedure Chet ESPINO [facility] Start: 12-18-2023 End: 12-18-2023 [facility]: 12-18-2023 End: 12-18-2023 Patient encounter procedure Chet ESPINO [facility] Start: 11-09-2023 ambulatory Chet ESPINO Facility:[facility] Start: 09-25-2023 End: 09-25-2023 Office outpatient visit 25 minutes Kimberley Jose MD Work Phone: [facility] Comment on above: Obstructive sleep ap natalie (Primary Dx); Insomnia, unspecified type; Non-Brazilian speaking patient; Obesity, Class II, BMI 35-39.9 Start: 08-29-2020 End: 09-02-2020 Evaluation and management of inpatient [facility] Facility:H1 Procedures Date Procedure Procedure Detail Performing Clinician Start: 08-29-2020 End: 08-29-2020 Microscopic examination of blood, culture [facility] Comment on above: Performed By: #### B MP #### [facility] [address] [place] [address] Panchito Hubbard Abdominal hysterectomy Chris elizabeth ESPINO Arthroscopy of knee Chet ESPINO Hysterectomy Chet ESPINO Plan of Treatment Date Care Activity Detail Author Start: 09-25-2024 Adult BMI Screening Adult BMI Screening [facility] Start: 09-25-2024 Tobacco Screening Tobacco Screening [facility] Start: 03-26-2024 End: 03-26-2024 Patient encounter procedure 03/26/2024 3:15 PM EDT Office Visit [facility] [address], [place] [place] [address] Luisa Soto, [employer]ENTATIVE-[employer] LOC[employer] [address], [address] [place] [address] [facility] Medicine Start: 06-01-2023 COVID-19 Vaccine ( season) COVID-19 Vaccine ( season) [facility] Start: 2008 Administration of varicella zoster vaccine Zoster (Shingles) Vaccine (1 of 2) [facility] Start: 11-30-1979 Screening for malignant neoplasm of cervix Pap Smear [facility] Start: 1977 DTaP,Tdap and Td Vaccines (1 - Tdap) DTaP,Tdap and Td Vaccines (1 - Tdap) [facility] Start: 1976 Adult BMI Follow Up Plan Adult BMI Follow Up Plan [facility] Start: 1970 Depression Screening Depression Screening [facility] Immunizations Immunization Date Immunization Notes Care Provider Fa cility 08-16-2023 influenza virus vaccine, unspecified formulation Chet ESPINO [facility] 10-13-2021 SARS-CoV-2 (COVID-19 ) mRNA-1273 vaccine Chet ESPINO [facility] 01-14-2021 COVID-19, mRNA, LNP- S, PF, 100mcg/0.5mL Dose Kimberley Jose MD Work Phone: [facility] Comment on above: Result Comment: 2023: [id number] 12-17-2020 COVID-19, mRNA, LNP- S, PF, 100mcg/0.5mL Dose Kimberley Jose MD Work Phone: [facility] Comment on above: Result Comment: 2023: [id number] Payers Date Payer Category Payer Medicaid [employer] [place] [id number] 2022-Present [phone] [place] [id number] 1959 Medicaid [id number] 1960 Unknown [id number] 1958 Unknown [id number] 1958 Unknown [id number] Social History Date Type Detail Facility Start: 12-19-2022 Tobacco smoking stat [facility] Ex-smoker [facility] History of tobacco use Current smoker [facility] History of tobacco use Cigarette Smoker P [facility] Start: 12-19-2022 Tobacco use and exposure Smoke less tobacco non-user [facility] Start: 09-25-2023 Alcohol intake Ex-drinker (finding) [facility] Start: 10-26-2020 End: 09-25-2023 History of Social function [facility] Start: 10-26-2020 End: 09-25-2023 Tobacco use panel [facility] Housing Instability Unknown [facility] Start: 1960 Sex Assigned At Not on file P [facility] Tobacco smoking status No Smokin g Status Entered [facility] Start: 01-22-2024 Tobacco smoking status Never s moked tobacco (finding) [facility] Functional Status Date Assessment Result Facility 01-22-2024 Functional Status N/A [facility] Clinical Note 01-22-2024 Note Date & Type Note Facility 01-22-2024 Note Chief Complaint consultation for positive Cologuard HPI Staff 63 year old female presents on consultation from Vitaly Lott RN MED SURG for positive Cologuard. Denies abdominal or rectal pain. No rectal bleeding or change in bowel habits. Denies nausea or vomiting. No unexplained weight loss. Never had colonoscopy in the past. No known family history of colon cancer. History of Present Illness 63 yo female with h/o htn, DMII, BASILIO, depression, referred for positive Cologuard; patient seen with her son, who functioned as her certified court interpreter; denies change in bms or blood in stools; no abdominal complaints; denies asa or NSAID use, no SBE prophylaxis; abdominal operations significant for hysterectomy, no previous colonoscopy; no fmhx of GI malignancy or IBD; no tobacco use. Review of Systems PHQ Score Initial Depression Screen Score: 0 SCORE ROS - Provider Constitutional: no fever, no sweats, no weight loss. Eyes: yes glasses, no blurred vision, no visual loss. ENMT: no dentures, no hoarseness, no swallowing difficulties, no hearing loss, no ear infection(s), no nose bleeds. Cardiovascular: normal blood pressure, no chest pain, regular heartbeat, no heart murmur. Respiratory: no shortness of breath, no cough, no asthma, no wheezing. Gastrointestinal: no nausea, no vomiting, no diarrhea, no constipation, no blood in stool, no change in bowel habits, no abdominal pain, no hepatitis. Genitourinary: no kidney stones, no urine infection, no dysuria. Musculoskeletal: no pain, no weakness. Skin: no changing moles, no rash, no skin lumps. Neurologic: no seizures, no epilepsy, no headache. Psychiatric: no emotional or psychiatric problem. Heme/Lymph: no bleeding problems, no anemia, no blood clots, no transfusions. Allergy/Immunologic: no swollen lymph nodes/glands, no IV drug abuse. Other: Additional ROS info: Except as noted in the above Review of Systems and in the History of Present Illness, all other systems have been reviewed and are negative or noncontributory. Physical Exam Vitals & Measurements HR: 76(Peripheral) RR: 16 BP: 126/80 HT: 60 in HT: 152.4 cm WT: 89.0 kg WT: 195.8 lb BMI: 38.32 HEENT: normal conjunctiva, sclera clear, no scleral icterus, EOM intact, PERRLA, oral mucosa moist without lesions. Neck: trachea midline, no mass, symmetric, no thyromegaly or nodules, no adenopathy Respiratory: lungs CTA, respirations non labored. Cardiovascular: regular rate and rhythm, no murmur, no pedal edema or varicosities. Gastrointestinal: obese, soft, non distended, no tenderness, no masses, no palpable hernias, diastasis recti no, no hepatosplenomegaly; normal bs Lymphatic: no cervical adenopathy, no supraclavicular adenopathy. Musculoskeletal: normal gait, digits and nails without infection, nodes, cyanosis, clubbing. Skin: no rashes, no lesions, no ulcers, no subcutaneous nodules, induration. Psychiatric/Neuro: oriented to time, place, person, judgement normal, affect appropriate for age, insight intact, no focal deficits. Tests: labs reviewed, , review of old records completed , Discussed surgical options, risks, and possible complications with patient. Assessment/Plan 1. Positive colorectal cancer screening using Cologuard test (R19.5: Other fecal abnormalities) plan colonoscopy under anesthesia for further evaluation, informed consent obtained. Follow-up No qualifying data available Problem List/Past Medical History Ongoing Anxiety BMI 38.0-38.9,adult Constipation Depression Essential hypertension Insomnia Metabolic syndrome X Morbid obesity Obstructive sleep apnea syndrome Positive colorectal cancer screening using Cologuard test Type 2 diabetes mellitus Historical Murmur Procedure/Surgical History Abdominal hysterectomy, Arthroscopy of knee. Medications lisinopril 40 mg Tab, 40 mg= 1 tab(s), Oral, Daily metformin 500 mg ER Tab, 1000 mg= 2 tab(s), Oral, Daily MiraLax, 17 gm, Oral, Daily Zoloft 50 mg Tab, 50 mg= 1 tab(s), Oral, Daily Allergies No Known Allergies No Known Medication Allergies Social History Alcohol - Denies Alcohol Use, 01/22/2024 Substance Abuse - Denies Substance Abuse, 01/22/2024 Tobacco Never (less than 100 in lifetime) Tobacco Use:. Never Smokeless Tobacco Use:., 01/22/2024 Family History Diabetes mellitus type 2: Mother. Heart disease: Mother. Hypertension: Mother and Sister. Immunizations Vaccine Date Status Comments influenza virus vaccine, inactivated 08/16/2023 Recorded SARS-CoV-2 (COVID-19) mRNA-1273 vaccine 10/13/2021 Recorded SARS-CoV-2 (COVID-19) mRNA-1273 vaccine 01/14/2021 Recorded 2023-11-28: [id number] SARS-CoV-2 (COVID-19) mRNA-1273 vaccine 12/17/2020 Recorded 2023-11-28: [id number] [facility] Comment on above: Result Comment: Elec tronically Signed By: KENZIE GRIGSBY, Chet Clements\Date and Time Signed: 01/22/24 16:00 EDT History of Present illness Narrative 09-25-2023 Kimberley Jose MD - 09/25/2023 11:30 AM EST Note Date & Type Note Facility 09-25-2023 History of Presen t illness Narrative Images from the original note were not included. INTERVAL HISTORY: [facility]/25/2023. She is a 62 y.o. female followed at the [facility] for insomnia, BASILIO, for which auto-CPAP 11-20 cm H2O was prescribed. At the time of the last visit in November 2022, the plan was to order sleep study. She is accompanied by son who acts as scroll saw operator (declined waiting to arrange for official scroll saw operator that was offered). Additional Interval History: She had a split night study done in March 2023 with severe BASILIO AHI 31 min O2 81% and recommended APAP 11-20 with Sharifa hybrid mask. PLMS were noted. She was setup by [facility]. She notes improved sleep. She does remove the mask around 4am after awakening. There is some leak noted around cheek and nose. She continues on melatonin and Lisinopril with benefit no longer taking sertraline. They stayed local for the holiday. Stevenson Sleepiness Scale: 12/19/2022 3:00 PM 09/25/2023 11:00 AM Stevenson Sleepiness Scale Sitting and Reading 0 0 Watching TV 0 1 Sitting inactive in a public place (theater, meeting) 0 0 As a passenger in a car for an hour without a break 0 0 Lying down in the afternoon to rest 0 1 Sitting and talking to someone 0 0 Sitting quietly after lunch (without alcohol) 0 0 In a car, while stopped for a few minutes in traffic 0 0 Total 0 2 PAST MEDICAL HISTORY: There is no problem list on file for this patient. Past Medical History: Diagnosis Date Arthritis Bowing of lower extremity Depression Edentulous HTN (hypertension) Severe obstructive sleep apnea Past Surgical History: Procedure Laterality Date HYSTERECTOMY KNEE SURGERY Bilateral OOPHORECTOMY ALLERGIES: No Known Allergies MEDICATIONS: Current Outpatient Medications on File Prior to Visit Medication Sig Dispense Refill lisinopriL (PRINIVIL,ZESTRIL) 40 mg tablet Take 1 tablet (40 mg total) by mouth in the morning. melatonin 10 mg tablet, sublingual Place under the tongue daily. Takes (2) 10 mg at bedtime No current facility-administered medications on file prior to visit. FAMILY HISTORY: Family History Problem Relation Age of Onset Diabetes Mother Heart disease Mother Breast cancer Sister 50s SOCIAL HISTORY: Social History Socioeconomic History Marital status: Spouse name: Not on file Number of children: Not on file Years of education: Not on file Highest education level: Not on file Occupational History Not on file Tobacco Use Smoking status: Former Types: Cigarettes Smokeless tobacco: Never Substance and Sexual Activity Alcohol use: Not Currently Drug use: Never Sexual activity: Not on file Other Topics Concern Not on file Social History Narrative Not on file Social Determinants of Health Financial Resource Strain: Not on file Food Insecurity: No Food Insecurity (12/19/2022) Hunger Screening Food Insecurity - Worry: Never True Food Insecurity - Inability: Never True Transportation Needs: Not on file Physical Activity: Not on file Stress: Not on file Social Connections: Not on file Interpersonal Safety: Not on file REVIEW OF SYSTEMS: Cardiovascular and pulmonary systems negative. PHYSICAL EXAMINATION: BP 135/75 Pulse 70 Ht 157.5 cm (5' 2 ) Wt 91.9 kg (202 lb 9.6 oz) SpO2 97% BMI 37.06 kg/m General appearance: Obese, no acute distress. Eyes: no conjunctival erythema, no scleral icterus. Ears, Nose, Mouth and Throat: external ears unremarkable, external nose unremarkable Neck: trachea position midline. Respiratory: respiratory effort normal Musculoskeletal: normal gait and station. Extremities: No c/c/e. Skin: No rash/ lesions/ulcers/ induration/subcutaneous nodules in visible regions. Neurologic: CN II-XII grossly intact. Mental Status: Cognitive: Alert and oriented x 3. Insight good. Judgment good. DATA: No results found for: WBC , HGB , HCT , MCV , PLT No results found for: FERRITIN Chemistry Component Value Date/Time K 4.2 03/13/2022 1206 CL 108 03/13/2022 1206 CO2 22 03/13/2022 1206 BUN 20 03/13/2022 1206 CREATININE 0.81 03/13/2022 1206 GLU 148 (H) 03/13/2022 1206 Component Value Date/Time CALCIUM 9.8 03/13/2022 1206 ALKPHOS 88 03/13/2022 1206 AST 17 03/13/2022 1206 ALT 25 03/13/2022 1206 No results found for: TSH PAP data card download 08/20/23 - 09/18/23 AirSense 10 AutoSet 11- 11.1 12 12.7 Percent days with device use =97% Average use: 6 hours 4 minutes per day Percent days with use >=4 hours: 97% Average AHI = 2.7 Average time in large leak/day = hr min seconds 95th percentile leak = 27.1 L/min ASSESSMENT: Ms. Jesse Damico is a 62 y.o. female with medical problems as above, followed at the [facility] for: Obstructive sleep apnea (March 2023 AHI=31/, Min/Mean O2=81/92%) treated with APAP 11-20 cm of water with hybrid mask from [facility] and mild leak Chronic insomnia, on melatonin Hypertension, on Lisinopril Non-yuhaaviatam Brazilian speaker needing scroll saw operator Obesity class II RECOMMENDATIONS: I reviewed her sleep study and download with them. I offered copies. I commended her compliance with PAP. I encouraged her to continue to use her current machine at her current setting all night every night. She is subjectively improved objectively compliant with a reassuring residual AHI. I renewed her PAP supply order for [facility], and advised monitoring leak. Ideally she would replace the mask after awakening. She is sleeping better, and continues on melatonin. I encouraged regular follow up with her primary care physician and other specialists for preventative and otherwise indicated health screening as well as management of comorbid medical conditions including HTN. We previously specifically discussed the relationship between HTN, obesity and sleep. I advise maintenance of a normal body weight, and support annual flu and COVID vaccination. Call if problems/questions arise prior to follow up Follow up in 6 month(s) with an official dirt bike mechanic EDUCATION: Risks of untreated obstructive sleep apnea were reviewed. Driving precautions were reviewed. I advised the patient not to drive if sleepy, and to supervisor pullet farm if sleepiness occurs while driving. Above plan as discussed with the patient who acknowledged understanding and agreement. Kimberley Jose MD [facility] [address] [facility] ([place], [place]) [place] [phone] documented in this encounter [facility] Instructions 09-25-2023 Patient Instructions Note Date & Type Note Facility 09-25-2023 Instructions Kimberley Jose MD - 09/25/2023 11:30 AM EST documented in this encounter [facility] Evaluation + Plan note Note Date & Type Note Facility Evaluation + Plan note Future Appointments Appointment Date:01/22/2024 03:20:00 PM Scheduled Provider:Chet ESPINO MD Location:[facility] Appointment Type:[place] [id number] [facility] Evaluation note Note Date & Type Note Facility Evaluation note Diagnosis Obstructive sleep apnea- Primary Obstructive sleep apnea (adult) (pediatric) Insomnia, unspecified type Non-Brazilian speaking patient Obesity, Class II, BMI 35-39.9 documented in this encounter [facility] Hospital course Narrative Note Date & Type Note Facility Hospital course Narrative No data available for this section [facility] Discharge instructions Note Date & Type Note Facility Hospital Discharge instructions No data available for this section [facility] Progress note Note Date & Type Note Facility Progress note No data available for this section [facility] Summary Purpose Family History No Family History Records Found No data available for this section No data available for this section No Family History Records Found Advance Directives No Advanced Directives Records FoundNo Advanced Directives Records Found Additional Source Comments INFORMATION SOURCE (unrecogn ized section and content) DATE CREATED AUTHOR 12/01/2020 [facility] DATE CREATED AUTHOR AUTHOR'S ORGANIZ ATION 03/07/2024 [facility] Reason for Visit (unrecogniz ed section and content) Reason Comments Sleep Apnea ComplianceDME: [facility] Care Teams (unrecognized sec tion and content) Family Resource Management Professor Relationship Specialty Start Date End Date Vitaly Lott, PLAYERS CLUB REPRESENTATIVE-TROUBLE LOCATER [address] [place] [address] PCP - General Family Medicine 10/02/19 FOR RECORDS PERTAINING TO PATIENTS WHO ARE OR HAVE BEEN ENROLLED IN A CHEMICAL DEPENDENCY/SUBSTANCEABUSE PROGRAM, SOME INFORMATION MAY BE OMITTED. This clinical summary was aggregated from multiple sources. Caution should be exercised in using it in the provision of clinical care. This summary normalizes information from multiple sources, and as a consequence, information in this document may materially change the coding, format and clinical context of patient data. In addition, data may be omitted in some cases. CLINICAL DECISIONS SHOULD BE BASED ON THE PRIMARY CLINICAL RECORDS. [facility] [employer] [facility]. provides no warranty or guarantee of the accuracy or completeness of information in this document.
[2024-03-19 08:07] LABS: Glucometer 125 mg/dL (74-106)
[2024-03-19 08:13] VITALS: BP 109/77; PULSE 78; TEMP 36.1; O2SAT 99; BMI 37.3
[2024-03-19] MEDS: LACTATED RINGER'S SOLUTION 1,000 ML 50 ML IV (08:19)
[2024-03-19 09:40] VITALS: BP 100/55; PULSE 76; TEMP 36.3; O2SAT 98
[2024-03-19 09:55] VITALS: BP 114/62; PULSE 69; O2SAT 100
[2024-03-19 10:10] VITALS: BP 123/70; PULSE 77; O2SAT 100
== END 2024-03-19 10:10 | disposition home or self-care (01) ==
PROVIDERS: Visit Provider Surgery
PROC: (CPT 00811; principal; 2024-03-19 08:45)
DX: K62.1 Rectal polyp (principal); R19.5 Other fecal abnormalities; I10 Essential (primary) hypertension; E11.9 Type 2 diabetes mellitus without complications; G47.33 Obstructive sleep apnea (adult) (pediatric); F32.A Depression, unspecified; Z90.710 Acquired absence of both cervix and uterus; Z79.84 Long term (current) use of oral hypoglycemic drugs
CPT/HCPCS: 00811; 45385; 36415; 82948; 88305; J2704